=== PATIENT | female | born 1940 | race Caucasian/White ===

== ENCOUNTER 2023-06-22 13:13 | Emergency (ER) | payer MEDICARE, SELFPAY ==
[2023-06-22 13:14] VITALS: BP 152/69; PULSE 65; RESP 14; TEMP 36.2; O2SAT 97; BMI 12.9
--- NOTE | 2023-06-22 13:47 | CT_ITS ---
STUDY: CT CERVICAL SPINE WITHOUT CONTRAST REASON FOR EXAM: Female, 83 years old. trauma due to a fall. RADIATION DOSAGE (If Supplied By Facility): CTDIvol = ( 23.06 ) mGy, DLP = ( 450.62 ) mGycm TECHNIQUE: High resolution transaxial imaging was performed without contrast material. Sagittal and coronal images were reconstructed. Individualized dose optimization techniques were used for this CT. COMPARISON: None FINDINGS: Normal craniovertebral junction. There are degenerative changes of the anterior atlantoaxial articulation. Normal odontoid process. Normal cervical lordosis. Normal vertebral bodies and posterior osseous elements. C2-3: Normal endplates. Normal disc height and morphology. Normal central canal and intervertebral neuroforamina. C3-4: Mild degree of disc space narrowing. 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 Uncovertebral arthrosis. Mild degree of bilateral neural foraminal stenosis. C4-5: Mild degree of disc space narrowing. Facet joint osteoarthritis and hypertrophy with uncovertebral arthrosis. Bilateral neural foraminal stenosis. C5-6: Moderate degree of disc space narrowing and spondylosis. Uncovertebral arthrosis. Bilateral neural foraminal stenosis. C6-7: Spondylosis. Moderate degree of disc space narrowing. Uncovertebral arthrosis. Mild degree of bilateral neural foraminal stenosis. C7-T1: Normal endplates. Normal disc height and morphology. Normal central canal and intervertebral neuroforamina. Normal visualized soft tissue structures. CT/Spine Cervical without Contras IMPRESSION: Multilevel degenerative changes, as described above. Electronically Signed: Eagle Zhao MD at 14:23 EDT ,
--- NOTE | 2023-06-22 13:47 | CT_ITS ---
STUDY: CT FACIAL BONES WITHOUT CONTRAST REASON FOR EXAM: Female, 83 years old. Facial injury due to a fall. RADIATION DOSAGE (If Supplied By Facility): CTDIvol = ( 29.38 ) mGy, DLP = ( 503.38 ) mGycm TECHNIQUE: The patient was scanned in a multi detector CT scanner. Sagittal and coronal images were reconstructed. Individualized dose optimization techniques were used for this CT. COMPARISON: None. FINDINGS: Soft tissue swelling. Normal orbital montes and orbital contents. Normal nasal bones and anterior nasal spine. Normal facial bones. There is no demonstrated fracture. Nasal septal deviation towards the right side of the midline. Minimal degree of mucosal thickening along the inferior lateral wall of the right maxillary sinus. CT/Sinus/Facial Bone IMPRESSION: No acute fracture is seen. Electronically Signed: Eagle Zhao MD at 14:26 EDT ,
--- NOTE | 2023-06-22 13:47 | CT_ITS ---
STUDY: CT BRAIN WITHOUT CONTRAST REASON FOR EXAM: Female, 83 years old. Head injury due to a fall. RADIATION DOSAGE (If Supplied By Facility): CTDIvol = ( 44.99 ) mGy, DLP = ( 796.11 ) mGycm TECHNIQUE: Transaxial CT imaging of the brain was performed without administration of intravenous contrast material. Individualized dose optimization techniques were used for this CT. COMPARISON: No relevant priors. FINDINGS: Normal soft tissue structures. Normal calvarium. There is mild cerebral atrophy with widening of the extra-axial spaces and ventricular dilatation. There are areas of decreased attenuation within the white matter tracts of the supratentorial brain, consistent with microvascular disease changes. Normal basal ganglia and thalami. Normal brainstem. There is mild cerebellar atrophy. There is no intracranial hemorrhage. There are no findings of an acute ischemic infarction. Atherosclerotic calcification of the cavernous portions of the internal carotid arteries bilaterally. Normal visualized paranasal sinuses. CT/Brain/Head without Contrast IMPRESSION: Chronic involutional changes of the brain. Electronically Signed: Eagle Zhao MD at 14:25 EDT ,
--- NOTE | 2023-06-22 13:49 | EX.ED.GENINJ ---
HPI History of Present Illness Chief Complaint: Fall Informant: patient Onset/Context/Timing Onset: Today Mechanism/Context: Fall Narrative Narrative: 83-year-old female presenting to the emergency room following a fall. Patient was in the parking lot at [facility] when she lost her balance and fell striking her face on the ground. She denies a loss of consciousness. Unknown last tetanus. She notes her left upper central incisor has been pushed posteriorly. She is already scheduled to see her dentist in a couple days. She notes laceration to the philtrum and inner mucosa. She notes injury to the nose and forehead. She denies any visual changes and states that her glasses were not broken. She notes bruising and abrasions to the bilateral knee. She notes that the left knee is swollen. She notes the neck is generally sore. She denies any malocclusion. Tetanus Immunization: Unknown PFSH PFSH Medical History no medical history Home Medications amoxicillin 875 mg-potassium clavulanate 125 mg tablet 875 mg (0.875 x 875-125 mg) PO Q12H #10 TABLETS 06/22/23 [Rx Last Taken Unknown] hydrocodone-acetaminophen 5-325mg 5mg-325mg 1 tab PO Q6H PRN PRN Pain 3 days #6 TABLETS 06/22/23 [Rx Last Taken Unknown] Allergy/AdvReac Type Severity Reaction Status Date / Time No Known Allergies Allergy Verified 06/22/23 13:26 Social History (Updated 06/22/23 @ 13:[address] Doug Vasquez, DO) current gender identity: female substance use type: does not use ROS ROS ED Constitutional Constitutional ED: Denies chills or weight loss Eyes Eyes: Denies change in vision or diplopia ENT ENT ED: Reports other Details: See history of present illness ; Denies ear pain, rhinorrhea or sore throat Cardiovascular Cardiovascular: Denies chest pain, orthopnea, palpitations or racing heartbeat Respiratory/Chest Respiratory/Chest: Denies cough, dyspnea or orthopnea Gastrointestinal Gastrointestinal: Denies abdominal pain, diarrhea, nausea or vomiting Genitourinary Genitourinary ED: Denies dysuria, hematuria or urinary frequency Musculoskeletal Musculoskeletal: Reports neck pain and other Details: See history of present illness ; Denies arthralgias, back pain or myalgias Integumentary Reports Abrasions and other Details: See history of present illness ; Denies abscess or rash Neurologic Neurologic: Reports headache(s); Denies weakness Psychiatric Psychiatric: Denies anxiety, depression, suicidal ideation or suicidal thoughts Endocrine Endocrinology: Denies polydipsia, polyphagia or polyuria Allergic/Immunologic Allergic/Immunologic ED: Denies mouth swelling, tongue swelling or urticaria EXAM Physical Exam Const Vital Signs: 06/22/23 13:14 06/22/23 13:21 06/22/23 14:41 Temperature 97.1 F L Temperature Source Temporal Pulse Rate 65 63 Respiratory Rate 14 Respiratory Effort Normal Non-Labored Respiratory Depth Normal Respiratory Pattern Normal Blood Pressure 152/69 H 135/67 H Blood Pressure Mean 96 89 Pulse Ox 97 Oxygen Delivery Method Room Air Room Air Positive well nourished and well developed General Appearance ED: well developed HEENT Reports normocephalic and moist mucous membranes HEENT Narrative: There is a 3 cm linear laceration over the left lower forehead. There is a 1.5 cm laceration at the mid forehead. There are multiple nasal abrasions and nasal swelling. There is no septal hematoma. There is a 3 cm horseshoe laceration to the outer philtrum that is through and through to the inner mucosa. The inner mucosal laceration is 2 cm in length extending down to the gumline. Left central upper incisor is displaced posteriorly but does not appear loose. There is no blood along the gumline. There is no obvious malocclusion. There is no tenderness at the TMJ or along the zygomatic arches. Midface appears stable. Eyes PERRL and EOMs intact bilaterally Neck no lymphadenopathy and no JVD Neck Narrative: Neck is diffusely tender to palpation. Resp normal respiratory effort and clear to auscultation bilaterally Cardio regular rate and regular rhythm Cardio Narrative: 3 out of 6 systolic heart murmur GI normal to inspection, nondistended, normoactive bowel sounds and non-tender Palpation: soft Back/Spine no CVA tenderness and normal ROM Extremity Extremity Narrative: There is bilateral superficial contusion and abrasions to the knees. The left knee demonstrates a well-healed knee replacement scar with swelling noted medially. Extensor mechanisms are intact. General Extremety ED: Negative for edema General Extremity: Negative for edema Neuro oriented x3 and CN's II-XII intact bilaterally Sensorium / Orientation: alert Motor Exam: strength 5/5 throughout Psych mental status grossly normal Mood & Affect: Negative for depressed or tearful Skin no rashes or lesions noted and skin turgor normal MDM MDM MDM Narrative Medical decision making narrative: Interventions\MDM: Radiologic imaging were obtained and reviewed. Wounds were sutured and cleansed and dressed. Dental care discussed with patient. Wound care discussed with patient. Patient will be placed on Augmentin for 5 days. She was instructed on soft foods and warm water rinses. Due to her balance issues I recommend Tylenol for pain but should severe pain occur I will write for a few Magnolia. Differential diagnosis: Intracranial hemorrhage facial skull and cervical spine fracture concussion extremity fracture extremity contusions dental trauma My EKG interpretation: N/A Imaging independently reviewed and interpreted by myself: Left knee film negative for fracture. Status post knee replacement. Soft tissue swelling noted. CT of the brain is without intracranial hemorrhage or fracture. CT cervical spine demonstrates degenerative changes but no fracture. CT facial bones no overt large fracture noted. External documents reviewed: N/A ED course: Let was applied to the wound. Tetanus was updated with Adacel. The wounds were cleansed and washed with Shur-Clens. The left forehead laceration was closed using 4 simple interrupted 4-0 Ethilon sutures. The 1.5 cm forehead laceration was closed using 2 simple interrupted 4-0 Ethilon sutures. The philtrum laceration was closed using 5 simple interrupted 4-0 Ethilon sutures. The area mucosa was loosely approximated using 4 simple interrupted 5-0 Vicryl sutures. Reevaluation: Stable Disposition discussed with patient/family/significant other: Disposition Home care discussed with patient with no further questions Care discussed with consulting clinician: N/A This note was generated with [employer] dictation software. It may contain incorrect words, spelling, punctuation that were not intended while checking the note before signing. Radiography Diagnostic Testing: Clinical Impression(s) from Imaging Studies Brain CT 06/22/23 13:47 IMPRESSION: Chronic involutional changes of the brain. Electronically Signed: Eagle Zhao MD at 14:25 EDT , Cervical Spine CT 06/22/23 13:47 IMPRESSION: Multilevel degenerative changes, as described above. Electronically Signed: Eagle Zhao MD at 14:23 EDT , Facial/Sinus 06/22/23 13:47 IMPRESSION: No acute fracture is seen. Electronically Signed: Eagle Zhao MD at 14:26 EDT , Knee X-Ray 06/22/23 14:00 IMPRESSION: Soft tissue swelling. Status post right total knee replacement. Electronically Signed: Eagle Zhao MD at 14:27 EDT , Discharge Plan Triage Chief Complaint: Fall ED Provider: Doug Vasquez Dx/Rx/DC Orders Clinical Impression: Cervical myofascial strain, Laceration of face, multiple sites, Contusion of face, Contusion of nose, Fall, Laceration of mouth, Contusion of left knee, Contusion of knee, right Instructions: ED Head Injury (Adult), ED Laceration: All Closures, ED Laceration, Lip or Mouth, ED Neck Sprain or Strain Prescriptions: New hydrocodone-acetaminophen [hydrocodone-acetaminophen] 5-325 mg tablet 1 tab PO Q6H PRN PRN (Reason: Pain) 3 Days Qty: 6 0RF amoxicillin-pot clavulanate [amoxicillin-pot clavulanate] 875-125 mg tablet 875 mg PO Q12H Qty: 10 0RF Primary Care Provider: Nidhi Naranjo Referrals: Nidhi Naranjo DO [Primary Care Provider] - 5 Days for suture removal Activity Restrictions/Additional Instructions: For the next several days while waiting to see your dentist please stick with a liquid or soft diet Warm water rinses after each feeding. Best to avoid touching the stitches with your tongue. You may apply antibiotic to the outside facial lacerations and abrasions twice a day. Please expect soreness. I would recommend Tylenol for pain. I wrote for Magnolia which is a narcotic pain medication should you experience severe pain. However with your balance issues if you do take this medication please use significant caution while ambulating. Also please note that narcotics may cause somnolence, constipation, nausea, and other side effects (please see prescription insert at pharmacy and ask pharmacist any additional questions you may have) You will need to see a dentist for the dental trauma -I would recommend calling them today if possible Disposition Disposition: Home, Self Care
--- NOTE | 2023-06-22 14:00 | RAD_ITS ---
STUDY: X-RAY - LEFT KNEE REASON FOR EXAM: Female, 83 years old. Abrasions following a fall. TECHNIQUE: 3 view(s) of the knee. COMPARISON: None. FINDINGS: Normal visualized distal femur. Normal visualized proximal tibia and fibula. Normal proximal tibiofibular articulation. The patient is status post total knee replacement. Anterior soft tissue swelling. RAD/Knee 3 Views IMPRESSION: Soft tissue swelling. Status post right total knee replacement. Electronically Signed: Eagle Zhao MD at 14:27 EDT ,
[2023-06-22] MEDS: Lidocaine/Epi/Tetracaine 50 ML 1 APPLIC TOPICAL (14:18)
[2023-06-22] MEDS: Lidocaine 1% (20 ml mdv) 20 ML Vial INFILT (14:18)
[2023-06-22] MEDS: Diphth,Pertuss(Acell),Tet Vac 0.5 ML Vial IM (14:18)
[2023-06-22 14:41] VITALS: BP 135/67; PULSE 63
== END 2023-06-22 16:00 | disposition home or self-care (01) ==
PROVIDERS: Emergency Provider Emergency Medicine; PCP Family Medicine; Visit Provider Emergency Medicine
DX: S01.81XA Laceration without foreign body of other part of head, initial encounter (principal); S80.212A Abrasion, left knee, initial encounter; S80.02XA Contusion of left knee, initial encounter; S80.211A Abrasion, right knee, initial encounter; Y92.481 Parking lot as the place of occurrence of the external cause; S16.1XXA Strain of muscle, fascia and tendon at neck level, initial encounter; S01.512A Laceration without foreign body of oral cavity, initial encounter; S80.01XA Contusion of right knee, initial encounter; W19.XXXA Unspecified fall, initial encounter; Z96.652 Presence of left artificial knee joint; Z23 Encounter for immunization
CPT/HCPCS: 12015; 70450; 70486; 72125; 73562; 90471; 99285